=== PATIENT | female | born 1940 | race African-American/Black ===

== ENCOUNTER 2017-09-11 23:54 | Inpatient (IN) | payer MEDICARE, OTHER ==
[~2017-09-11] VITALS: Ht 160 cm; Wt 72.0 kg
[2017-09-11 23:54] VITALS: BP_SYST 136
--- NOTE | 2017-09-11 23:54 | NUR ---
Patient to ER bed 2 to gown for evaluation. Side rails up. Report given to VANDANA DURAN.
--- NOTE | 2017-09-11 23:55 | NUR ---
Patient to ER via EMS with c/o SOB increasing in severity since earlier today. Patient placed on oxygen en route to ER, and patient reports that she feels better after oxygen. Patient placed on monitor tech which shows sinus rhythm without ectopy, patient also on BP monitor and pulse oximeter. Patient is on Non-rebreather mask at 15 lpm with saturationsof 100% Patient is awake, alert and oriented with increased work of breathing noted. Patient has HX of dialysis, but states that she only goes 1 day a week, and that her last dialysis treatment was 4 days ago on of last week. Will continue to observe and assess.
--- NOTE | 2017-09-11 23:55 | NUR ---
Dr Pablo at bedside to evaluate patient.
[2017-09-12] VITALS (9 sets, daily range): BP systolic 117–236
[2017-09-12] MEDS ORDERED: NITROGLYCERIN 1 INCH (GM) OINT. TP ONE (00:30)
[2017-09-12] MEDS ORDERED: FUROSEMIDE 40 MG/4 ML VIAL IVP ONE (00:30)
[2017-09-12] MEDS ORDERED: ONDANSETRON HCL 4 MG/2 ML VIAL IVP PRN (00:45)
[2017-09-12] MEDS ORDERED: cefTRIAXone 1 GM IVPB PREMIX 50 ML IV ONE ×2 (00:45→02:58)
[2017-09-12] MEDS ORDERED: IPRATROPIUM/ALBUTEROL SULFATE 3 ML AMPUL.NEB INH PRN (00:45)
--- NOTE | 2017-09-12 00:45 | NUR ---
Dr Dowell at bedside to evaluate patient. Admit orders have been placed, awaiting clearance from Dr Pablo. Will continue to observe and assess.
[2017-09-12 00:49] LABS: BASOPHILS % (AUTO) 0.4 % (0.0-2.0); EOSINOPHILS # (AUTO) 0.4 K/uL (0.0-0.4); EOSINOPHILS % (AUTO) 5.8 % (0.0-4.0); HEMATOCRIT 36.8 % (36-48); LYMPHOCYTES # (AUTO) 0.9 K/uL (1.0-5.5); LYMPHOCYTES % (AUTO) 11.6 % (20.5-51.5); MEAN CORPUSCULAR HEMOGLOBIN 28 pg (27-31); MEAN CORPUSCULAR HGB CONC 33 % (32-36); MEAN CORPUSCULAR VOLUME 85 fL (79.0-98.0); MONOCYTES # (AUTO) 0.6 K/uL (0.0-1.0); MONOCYTES % (AUTO) 7.3 % (1.7-9.3); NEUTROPHILS # (AUTO) 5.8 K/uL (1.8-7.7); NEUTROPHILS % (AUTO) 74.9 % (40.0-70.0); PLATELET COUNT (AUTO) 270 K/uL (130-430); RED BLOOD CELL COUNT(AUTO) 4.33 MIL/uL (4.2-6.2); RED CELL DISTRIBUTION WIDTH 18.9 % (9.0-15.0); WHITE BLOOD COUNT (AUTO) 7.7 K/uL (4.8-10.8)
[2017-09-12 01:14] LABS: PROTHROMBIN TIME 10.4 SECS (9.5-12.5)
[2017-09-12 01:20] LABS: ANION GAP 12 (5-15); CALCIUM 7.6 mg/dL (8.4-11.0); CHLORIDE 95 mmol/L (98-107); GLUCOSE 109 mg/dL (70-99); POTASSIUM 5.1 mmol/L (3.5-5.1); SODIUM SERUM 130 mmol/L (136-145); UREA NITROGEN, BLOOD 83 mg/dL (8-21)
[2017-09-12 01:25] LABS: CREATININE 10.05 mg/dL (0.55-1.30)
[2017-09-12] MEDS ORDERED: MORPHINE 2 MG/ML INJ. SYRINGE IVP ONE (01:30)
[2017-09-12] MEDS ORDERED: INSULIN REGULAR, HUMAN 100 UNITS/ML, 10 ML VIAL IV ONE (01:30)
[2017-09-12] MEDS ORDERED: SODIUM POLYSTYRENE SULFONATE 15 GM/60 ML UDBTL PO ONE (01:30)
[2017-09-12] MEDS ORDERED: ALBUTEROL SULFATE 0.083% 2.5 MG/3 ML VIAL.NEB INH ONE (01:30)
[2017-09-12] MEDS ORDERED: DEXTROSE 50% JECT 50 ML DISP.SYRIN IVP ONE (01:30)
--- NOTE | 2017-09-12 01:30 | NUR ---
Medication reconciliation completed with information provided by [place]. Any prior medication reconciliation on file was reviewed and corrected.
[2017-09-12 01:32] LABS: ALANINE AMINOTRANSFERASE 53 U/L (12-78); ALBUMIN 2.7 g/dL (3.4-4.8); ASPARTATE AMINOTRANSFERASE 42 U/L (10-37); PHOSPHORUS 6.7 mg/dL (2.7-4.5); TOTAL BILIRUBIN 0.5 mg/dL (0.0-1.0)
[2017-09-12] MEDS ORDERED: NIFE-2 PO (01:34)
[2017-09-12] MEDS ORDERED: DOCU-144 PO (01:34)
[2017-09-12] MEDS ORDERED: CARV12.548 PO (01:34)
[2017-09-12] MEDS ORDERED: GLIP5TAB13 PO (01:34)
[2017-09-12] MEDS ORDERED: NIFE90TA24 PO (01:34)
[2017-09-12] MEDS ORDERED: LISI40TA4 PO (01:34)
[2017-09-12] MEDS ORDERED: LOVA20TA2 PO (01:34)
[2017-09-12] MEDS ORDERED: HYDR25TA4 PO (01:34)
[2017-09-12] MEDS ORDERED: FURO80TA86 PO (01:34)
[2017-09-12] MEDS ORDERED: SODI650T PO (01:34)
[2017-09-12] MEDS ORDERED: CALC0.258 PO ×2 (01:34)
[2017-09-12] MEDS ORDERED: TYC3 PO (01:34)
--- NOTE | 2017-09-12 01:41 | NUR ---
RT at bedside for breathing treatment before patient is transported to floor.
--- NOTE | 2017-09-12 01:45 | NUR ---
Family at bedside-update/emotional support given, questions answered. Patient to go to floor after breathing treatment is done.
--- NOTE | 2017-09-12 01:45 | NUR ---
Transfer to [facility], room 133-A via ACLS protocol. Licensed nurse present. IV present no signs or symptoms of infiltration.
--- NOTE | 2017-09-12 01:45 | NUR ---
Patient will be admitted to care of Dr Dowell. Admitted to Tele unit. Will go to room 133-A. Belongings list completed. Summary report printed. Report will be given at bedside.
--- NOTE | 2017-09-12 02:10 | NUR ---
ADMISSION NOTE Received patient from ER via gurney. Patient admitted with diagnosis of Respiratory Failure. Patient is awake, alert, oriented X 3. Patient oriented to hospital room, call light, toileting, pain management and safety-teach back done. Patient informed that VANDANA Villalobos will be primary nurse and that their room number is 133A. Personal belongings checked and Belongings List documented. Call light within reach.
--- NOTE | 2017-09-12 02:22 | NUR ---
CARDIO CONSULT Consult for Dr. Lindsay was called, RE CHF KEL Caceres
--- NOTE | 2017-09-12 02:23 | NUR ---
NEPHRO CONSULT Consult for Dr. Astudillo was called (Dr. Katharina Escobar is certified residential medication aide) [phone] RE FLORES Caceres
--- NOTE | 2017-09-12 03:38 | NUR ---
ROCEPHIN 1 GM IVPB administer as ordered patient awake alert verbally indicative .
[2017-09-12] MEDS: MORPHINE 2 MG/ML INJ. SYRINGE IVP PRN ×2 (05:03→14:43)
--- NOTE | 2017-09-12 05:04 | NUR ---
MORPHINE SULFATE 2 MG IVP administer for general discomfort 02/13 and helpful , patient resting this hour .
--- NOTE | 2017-09-12 08:05 | NUR ---
Opening notes received pt in bed, c/o pain on the legs, 03/16. pain med not due yet. informed patient. pt stated it is okay. told pt that pain med is due at around 9am. pt is alert and oriented, no distress, on o2 2li per nc. o2 sat is 96 %. family at bed side, bed in low position. call light in reach, 2x side rails up, bed alarm on. will cont to monitor pt.
[2017-09-12] MEDS ORDERED: DOCUSATE SODIUM 100 MG CAPSULE PO PRN (08:45)
--- NOTE | 2017-09-12 09:00 | NUR ---
pt denies pain, discussed plan of care for the day. told them that [facility] is already aware that she is in the hospital and the family independence case manager will call us for update and for possible transfer.
--- NOTE | 2017-09-12 09:04 | NUR ---
DC PLANNING Called & spoke shaina Harry @ [facility], ph [phone], case has been opened but denied due to no clinical information. Faxed pt info to [facility], fax [phone]. Informed pt's nurse Lucio. Addendum: 09/12/17 at 1502 by Rosario Singh RN Received msg earlier today from Fina GARRIDO @ [facility], ph [phone], pt OON if stable for transfer. Later in afternoon spoke w Dr Dowell in nsg station, pt stable for transfer after HD, states already spoke w Cesar GARCIA. Called & left msg shaina Carrera stable for transfer Tele via ACLS, pt prefers [facility]. Informed pt's nurse Lucio. Addendum: 09/12/17 at 1542 by Rosario Singh RN Spoke shaina pt @ bedside & informed order stable for transfer to [facility] [place], agreeable would like me to inform dtr Marianna. Called & spoke w dtlb Cabral, ph [phone], & informed agreeable w plan to transfer to [facility].
[2017-09-12] MEDS: CARVEDILOL 12.5 MG TABLET (COREG) PO SCH ×2 (10:00→21:11)
--- NOTE | 2017-09-12 10:10 | NUR ---
rn rounds pt in bed, denies pain, pt made aware that she is going to have dialysis today as ordered. no sob, no distress. call light in easy reach. encouraged to call for assist and pain med. bed alarm on. bed in lowest position. will cont to monitor.
--- NOTE | 2017-09-12 11:06 | NUR ---
Nutrition Update: 77 year old female admit with respiratory failure. Current diet: renal Current weight: 72kg, 158#, BMI 28kg/m2 Roberto scale=18 RD to follow per nutrition care standards. [place], RD
--- NOTE | 2017-09-12 12:00 | NUR ---
rn rounds, pt in bed, c/o of slight neck pain, refused pain medication. pt stated that she ambulates but feels short of breath with ambulation. on o2 2l per nc. call light in easy reach. bed in low position. bed alarm on. will cont to monitor. pt signed consent for dialysis. no time was given by hd nurse to house sup but they are aware of the order for hd this am per house sup.
[2017-09-12] MEDS ORDERED: DEXTROSE 50% JECT 50 ML DISP.SYRIN IVP PRN (13:45)
[2017-09-12] MEDS ORDERED: INSULIN REGULAR, HUMAN 100 UNITS/ML, 10 ML VIAL (novoLIN R) SUBCUT PRN (13:45)
[2017-09-12] MEDS ORDERED: IPRATROPIUM/ALBUTEROL SULFATE 3 ML AMPUL.NEB INH SCH (14:00)
[2017-09-12] MEDS ORDERED: ACETAMINOPHEN/CODEINE 300 MG-30 MG TABLET PO PRN (14:00)
[2017-09-12] MEDS ORDERED: cloNIDine HCL 0.2 MG TABLET PO PRN (14:00)
[2017-09-12] MEDS ORDERED: AZITHROMYCIN 250 MG TABLET PO ONE (14:15)
[2017-09-12] MEDS ORDERED: methylPREDNISolone SOD SUCC 40 MG/ML VIAL IVP ONE (14:15)
[2017-09-12] MEDS ORDERED: NIFEDIPINE 90 MG TABLET.SA (PROCARDIA XL 90 MG) PO ONE (14:30)
--- NOTE | 2017-09-12 15:26 | NUR ---
DISCHARGE PLANNING DC order to contracted hospital. Ordered Radiology CD. Transportation packet in nurses station.
--- NOTE | 2017-09-12 16:37 | NUR ---
PER HD RN [facility], HD COMPLETED, 3 LITERS OUTPUT, LAST BP IS 188/98 TEMP. 99F.
[2017-09-12] MEDS: cloNIDine HCL 0.2 MG TABLET PO PRN ×2 (17:27→21:11)
--- NOTE | 2017-09-12 17:31 | NUR ---
pt's bp was 213/[address] abel is aware, given bp med as ordered. pt's daughter at bedside. stated that pt always has high bp. pt and dtr aware of transfer to [facility].
[2017-09-12] MEDS ORDERED: LOVASTATIN 20 MG TABLET PO SCH (18:00)
--- NOTE | 2017-09-12 19:01 | NUR ---
CLOSING NOTES, PT IN BED, FAMILY AND VISITORS AT BEDSIDE, NO C/O PAIN, NO SOB, NO DISTRESS, PT'S DTR RECEVIED COPY OF DC/TRANSITION CARE PACKET. PT IS BEING TRANSFERRED TO [facility] FOR INSURANCE REASON. PT HAD HD, PT TOLERATED WELL. NO BLEEDING ON THE HD SITE. PT'S BP STILL HIGH AND BP MEDS GIVEN TO PT.
--- NOTE | 2017-09-12 19:17 | NUR ---
AEL FROM [facility] CALLED BACK TO CHECK ON PT. PT BP IS NOW 186/91 HR 89 TEMP 99.3. ALE SAID SHE WILL CALL HER MD AND WILL CALL BACK TO INFORM US IF PT WILL BE ACCEPTED. WILL INFORM PT AND FAMILY.
--- NOTE | 2017-09-12 19:50 | NUR ---
[facility] FROM [facility] CALLED BACK, HER MD REQUESTING FOR A SECOND TROPONIN DRAW BEFORE ACCEPTING PT. TOLD NIGHT RN TO CALL FOR THE TROPONIN LEVEL AND GET ACCEPTANCE OF PATIENT.
--- NOTE | 2017-09-12 20:36 | NUR ---
Phoned paged [facility] [place] , REGARDING TRANSFER OF PATIENT THIS PM [phone] .
[2017-09-12] MEDS ORDERED: NIFEDIPINE 30 MG TAB.ER.24 PO SCH (21:00)
[2017-09-12] MEDS ORDERED: methylPREDNISolone SOD SUCC 40 MG/ML VIAL IVP SCH (21:00)
[2017-09-12] MEDS ORDERED: SIMVASTATIN 10 MG TABLET PO SCH (21:00)
[2017-09-12] MEDS ORDERED: FUROSEMIDE 80 MG TABLET PO SCH (21:00)
--- NOTE | 2017-09-12 22:36 | NUR ---
PHONED [facility] REPORT GIVEN TO [facility] ROSS RECEIVING NURSE FAMILY OF PATIENT IS HERE & AWARE OF TRANSFER , AMBULANCE LABORATORY TECHNOLOGY TEACHER TIME IS @ 2300 .
--- NOTE | 2017-09-12 23:00 | NUR ---
AMBULANCE CALLED & SAID WILL ARRIVE LATE @ 0030 , REGARDING [facility] TRANSFER , FAMILY HERE & UPDATED MADE AWARE / .
--- NOTE | 2017-09-13 | NUR ---
SBAR REPORT GIVEN TO VANDANA TORIBIO .
--- NOTE | 2017-09-13 00:10 | NUR ---
Rounds Assumed nursing care of pt after report was obtained from nurse Rebel Finley. Pt is fully awake and alert. Female family member is at the bedside. Pt is awaiting transfer to [facility] in [place]. ASHLEY AV shunt is with good bruit and thrill. Rt hand saline lock is without any signs of infiltration. Fall and safety precautions are in place.
[2017-09-13 00:12] VITALS: BP_SYST 141
--- NOTE | 2017-09-13 01:45 | NUR ---
Transfer Note Pt was transferred to [facility] via Ambulance with all her belongings in stable condition. monitoring coordinator was removed and given to Regular Senior Care Provider. Wrist ID band already removed and pt has plain ID band with her name and date of on her wrist. Transition of care packet already explained and given to pt and her family. Saline lock in Rt hand was left in place.
[2017-09-13] MEDS ORDERED: AZITHROMYCIN 250 MG TABLET PO SCH (09:00)
[2017-09-13] MEDS ORDERED: LISINOPRIL 20 MG TABLET PO SCH (09:00)
[2017-09-13] MEDS ORDERED: NIFEDIPINE 90 MG TABLET.SA (PROCARDIA XL 90 MG) PO SCH ×2 (09:00)
[2017-09-15] MEDS ORDERED: CALCITRIOL 0.25 MCG CAPSULE PO SCH (09:00)
== END 2017-09-13 01:45 | disposition short-term general hospital (02) | DRG 189 ==
LOC: SED 23:54 → STU 09-12 00:32
PROVIDERS: ADMIT Internal Medicine; ATTEND Internal Medicine
PROC: 5A1D70Z Performance of Urinary Filtration, Intermittent, Less than 6 Hours Per Day (ICD-10-PCS; principal; 2017-09-12)
DX: J96.00 Acute respiratory failure, unspecified whether with hypoxia or hypercapnia (principal); I13.2 Hypertensive heart and chronic kidney disease with heart failure and with stage 5 chronic kidney disease, or end stage renal disease; E11.22 Type 2 diabetes mellitus with diabetic chronic kidney disease; E11.42 Type 2 diabetes mellitus with diabetic polyneuropathy; E11.319 Type 2 diabetes mellitus with unspecified diabetic retinopathy without macular edema; I50.31 Acute diastolic (congestive) heart failure; N18.6 End stage renal disease; J44.1 Chronic obstructive pulmonary disease with (acute) exacerbation; Z87.891 Personal history of nicotine dependence; Z99.2 Dependence on renal dialysis; Z79.1 Long term (current) use of non-steroidal anti-inflammatories (NSAID); Z79.899 Other long term (current) drug therapy
CPT/HCPCS: 36415; 36600; 71045; 80053; 82803-TC; 82962; 83735-TC; 83880; 84100-TC; 84484; 85025; 85610-TC; 85730-TC; 86710; 87081; 90935; 93005; 93306; 94640; 94760; 96374; 96375; 99285; J0696; J1030; J1815; J1940; J2270; J7050; Q0144